=== PATIENT | male | born 1960 | race Caucasian/White ===

== ENCOUNTER 2017-03-04 05:44 | Day surgery (SDC) | payer OTHER ==
[~2017-03-04] VITALS: Ht 182.9 cm; Wt 91.2 kg
[2017-03-04] VITALS (12 sets, daily range): BP systolic 115–167; BP diastolic 60–102; PULSE 74–108; RESP 12–22; O2SAT 91–96
[~2017-03-04 05:44] MED LIST: Tranexamic Acid Inj 1,000 MG in 0.9% Sodium Chloride 100 ML IV SCH
[2017-03-04] MEDS ORDERED: Lactated Ringer's 1,000 ML IV ONE (06:00)
[2017-03-04] MEDS ORDERED: CeFAZolin 2 Gm/50 mL D5W Duplex Bag IV ONE (07:01)
--- NOTE | 2017-03-04 07:02 | PCM.HPANE ---
Patient Data Surgeon Admitting Provider: Attending Provider:Tim Salinas MD Primary Care Physician:Raad Wilkinson MD Other Provider:Ana Cristina Pateingham Anesthesia Reason for Visit Right Knee Arthritis Ht/WT & BMI Height (Feet): 6 Height (Inches): 0.00 Weight (Kilograms): 91.200 Body Mass Index 27.00 Allergies Coded Allergies: No Known Allergies (Verified , 02/28/05) Past Anesthesia History Anesthesia History: Denies:: Anesthesia Reactions (nervous- prior to surgery), Fam Anesthesia Reaction, Malignant Hyperthermia Diabetes History Hx Diabetes?: No MRSA MRSA: No Medications Hypertension Medication: No Home Meds Incl Beta Armando: No Discontinued Reported Medications [ibuprofen] No Conflict CheckUnknown Dose PRN For Pain 08/29/15 History History of ENT Problems?: Yes HEENT History: Positive for:: Sinus Problem (hx of rhinoplasty) Denies:: Cataracts Glaucoma Hearing Problem Denture Type: None Teeth Condition: Within Normal Limits Hx of Heart Problems?: No Cardiovascular History: Denies:: Cardiac Surgery Chest Pain Congestive Heart Failure Edema Heart Murmur Hypertension Irregular Heartbeat Pacemaker Thrombophlebitis Hx of Respiratory Problem?: Yes Respiratory History: Positive for:: Use of C-PAP Machine (uses mouth guard) Denies:: Asthma COPD Emphysema Oxygen Administration Pneumonia Tuberculosis Hx Neurologic Problems?: No Neurological History: Denies:: CVA Headaches Multiple Sclerosis Parkinson's Disease Seizures TIA Hx of GI Problems?: Yes Hx of Problems?: Yes Genitourinary History: Positive for:: Kidney Stones (hx of kidney stones, surgery 2004) Denies:: Urinary Tract Infection Male Hx: Denies:: Prostate Problems Scrotal Mass Testicular Surgery Skin History: Denies:: History Skin Disorders? Pressure Ulcers Hx Musculoskeletal Problems?: Yes Musculoskeletal History: Positive for:: Degenerative Joint Musculoskeletal Trauma (right knee current admission problem, hx of scopes) Osteoarthritis Denies:: Fibromyalgia Joint Replacement (current admission plan) Systemic Lupus Hx of Psycho/Social Problems?: No Psycho Social History: Positive for:: Anxiety Denies:: Hx Depression Suicide Attempt Hx Surgeries?: Yes (FUSION IOF LEFT ANKLE, RHINOPLASTY, KIDNEY STONE REMOVED RIGHT KIDNEY) Hx Any Other Health Problems?: Yes Other History: Positive for:: Hospitalization Denies:: Cancer Thyroid Disease History Blood Transfusions: Positive for:: Accept Blood Products? Denies:: Blood Transfusions Hx Diabetes: No Hx Alcohol Use: YesAlcoholic Drinks Per Day: 2-3 drinks dailyHx Substance Use : Yes (marijuana- edible randomly) Smoking Status: Former Smoker Have You Smoked inLast 12 mo: No Stop/Bang S-Snoring: Do You Snore Loudly: Yes T-Tired: feel tired, fatigued: No O-Obsered: Observed not breath: No P-Blood Pressure: treated: No B- Body Mass Index > 35 kg/m2: No A- Age over 50: Yes N- Neck Large Circumference: No G- Gender Male: Yes YUSEF Total Score: 3 YUSEF Category 4 OutPt Procedure: Yes Risk Assessment Category Category 1A: Patient has history of documented sleep apnea, and HAS NOT received any narcotic, sedative or anesthesia administration during this stay. Category 1B: Patient has history of documented sleep apnea, and HAS received any narcotic , sedative or anesthesia administration during this stay Category 2: Patient has SUSPECTED Obstructive Sleep Apnea, and HAS received any narcotic , sedative or anesthesia administration during this stay. Category 3: Patient has SUSPECTED Obstructive Sleep Apnea and HAS NOT received narcotic, sedative or anesthesia administration during this stay. Category 4: Outpatient in Procedural Areas with known sleep apnea or who screen positive for High Risk via the STOP/BANG questionnaire. Exam Exam Vital Signs Vital Signs Date Time Temp Pulse Resp B/P Pulse Ox O2 Delivery O2 Flow Rate FiO2 03/04/17 06:20 36.3 74 12 120/82 96 Room Air General Appearance: Alert, Oriented X3, Cooperative, Moderate Distress (with anxiety) HEENT/AIRWAY: MP 1 Lungs: Normal Air Movement Heart: Exam Unremarkable Meds/Labs/Diagnostics Admission Meds Current Medications Lactated Ringer's (Lr) 1,000 ml @ 10 mls/hr Q24H ONCE IV Last administered on 03/04/17t 06:52; Start 03/04/17 at 06:00; Stop 03/05/17 at 05:59 Plan Impression Patient chart reviewed, patient interviewed and anesthestic plan with risks, benefits, and alternatives discussed, and informed consent obtained. NPO per Anesth. Guidelines: Yes ASA Physical Status: ASA1 Normal Healthy Anesthetic Plan: GA Bene/Risks/Altern/Consents: Yes HP Complete Prior to Induction: Yes Mynor Tello MD Mar 04, 2017 07:02
[2017-03-04] MEDS ORDERED: Bupivacaine Liposome 1.3% 20 mL Inj ONE (07:20)
[2017-03-04] MEDS ORDERED: fentaNYL-PF 50 mCg/mL 2 mL Inj ONE (07:27)
[2017-03-04] MEDS ORDERED: HYDROmorphone 1 mg/mL Inj ONE (07:27)
[2017-03-04] MEDS ORDERED: Dexamethasone 4 mg/mL Inj ONE (07:27)
[2017-03-04] MEDS ORDERED: Propofol 10 mg/mL 20 mL Inj ONE (07:27)
[2017-03-04] MEDS ORDERED: Ondansetron 2 mg/mL 2 mL Inj ONE (07:27)
[2017-03-04] MEDS ORDERED: Bupivacaine-MPF 0.25%/EPI 30 mL Inj INJ ONE (07:45)
[2017-03-04] MEDS ORDERED: Gentamicin 40 mg/mL 2 mL Inj IRRIGATION ONE (07:45)
[2017-03-04] MEDS ORDERED: Bupivacaine Liposome 1.3% 20 mL Inj INFILTRATE ONE (07:45)
[2017-03-04] MEDS ORDERED: Lactated Ringer's 500 ML IV PRN (08:01)
[2017-03-04] MEDS ORDERED: Lactated Ringer's 1,000 ML IV SCH (08:01)
[2017-03-04] MEDS ORDERED: Dexamethasone 4 mg/mL Inj IVPUSH PRN (08:05)
[2017-03-04] MEDS ORDERED: EPHEDrine Sulfate 50 mg/mL Inj IVPUSH PRN (08:05)
[2017-03-04] MEDS ORDERED: fentaNYL-PF 50 mCg/mL 2 mL Inj IVPUSH PRN (08:05)
[2017-03-04] MEDS ORDERED: Atropine 0.4 mg/mL Inj IVPUSH PRN (08:05)
[2017-03-04] MEDS ORDERED: Labetalol 5 mg/mL 4 mL Inj IV PRN (08:05)
[2017-03-04] MEDS ORDERED: Phenylephrine 10,000 mCg/mL Inj IVPUSH PRN (08:05)
[2017-03-04] MEDS ORDERED: Albuterol-Ipratropium 3 mL Inhalation Solution NEB PRN (08:05)
[2017-03-04] MEDS ORDERED: Ondansetron 2 mg/mL 2 mL Inj IVPUSH PRN (08:05)
[2017-03-04] MEDS ORDERED: MetoCLOpramide 5 mg/mL 2 mL Inj IVPUSH PRN (08:05)
[2017-03-04] MEDS ORDERED: oxyCODONE-Acetamin 5-325 mg Tablet PO PRN (08:50)
[2017-03-04] MEDS: HYDROmorphone 1 mg/mL Inj IVPUSH PRN ×3 (09:20→10:40)
--- NOTE | 2017-03-04 09:34 | OP ---
[address] [address] OPERATIVE REPORT PATIENT: LACEY MURCIA : 1960 MR#: [id number] ADMIT: 03/04/2017 JOB ID: [id number] DATE OF SURGERY: 03/04/2017 SURGEON: Tim Salinas M.D. PREOPERATIVE DIAGNOSIS(ES): Advanced lateral compartment osteoarthritis, right knee. POSTOPERATIVE DIAGNOSIS(ES): Advanced lateral compartment osteoarthritis, right knee. PROCEDURE: Right knee lateral unicompartmental knee arthroplasty. BACTERIOLOGY TECHNICIAN: Xavier Yi PA-C Speech Language Pathology Assistant required due to the complexity of the operation. INDICATIONS: This gentleman has had progressive disability associated with lateral compartment degenerative changes. Symptoms are uncontrolled by conservative treatment options. He elects to proceed with a lateral compartment arthroplasty understanding and accepting the potential for risks and complications, which include but is not limited to infection, thromboembolic, neurovascular events, as well as potential for progressive arthritis and unresurfaced compartments and implant failure. Understanding these, he wishes to proceed. DESCRIPTION OF PROCEDURE: The patient was prepped and draped in the usual sterile fashion. An anterolateral approach was made. Frontal bossing and patellar osteophyte removed. The alignment apparatus was assembled. Distal femoral and proximal tibial cuts were made. Tibial cut was completed with the sagittal saw. Bone fragments were removed. All meniscal tissue and osteophytes were removed from the knee. The femur was sized to an 8 chamfer cutting block, fixed in appropriate position. Rotation and drill holes and chamfer cuts were made. The tibia was cut with the R size to a #5 provisionally fixed. Drill holes were made. Trial reduction was performed and an 8 mm polyethylene produced appropriate soft tissue tension and alignment tracking. Pressurized lavage was followed by pressurized cementation of the components. Excess cement was removed during the curing process. Cut margins injected with Marcaine and Exparel mix. Deep Hemovac drain was left. Deep closure of the fascia with #2 Quill deep followed by 2-0 Vicryl, 3-0, and a 4-0 intracuticular stitch. Sterile dressings were applied. The patient was returned to the recovery room in stable condition. He tolerated the procedure well. There were no complications.
--- NOTE | 2017-03-04 09:58 | PCM.ANEP1 ---
Post Anesthesia PACU Phase 1 Assessment Vital Signs see anesthesia record Vital Signs Date Time Temp Pulse Resp B/P Pulse Ox O2 Delivery O2 Flow Rate FiO2 03/04/17 09:30 99 22 133/86 94 Simple Mask 10 03/04/17 09:25 99 18 139/93 95 Simple Mask 10 03/04/17 09:20 36.3 102 20 150/102 96 Simple Mask 10 03/04/17 09:15 105 17 150/102 94 Simple Mask 10 03/04/17 09:10 108 13 167/95 95 Simple Mask 10 03/04/17 09:07 36.3 155/101 03/04/17 06:20 36.3 74 12 120/82 96 Room Air Anesthetic Administered: GA Level of Alertness: Awake, talking LAZO's with Equal Strength: Yes Pain: Yes (difficult to control as patient is apneic but any arousal results in reported extreme pain) Nausea or Vomiting: No CV Function & Hydration Stable: Yes Airway Device: NITE GUARD Oxygen Delivery: Simple Mask Lungs: Normal Air Movement Dermatome Level: Full Sensation PACU Phase 2 Assessment Complications: No Follow up Care: No Patient Instructions Provided: N/A Mynor Tello MD Mar 04, 2017 09:58
[2017-03-04] MEDS: hydrOXYzine Pamoate 25 mg Capsule PO PRN ×2 (09:59→10:40)
--- NOTE | 2017-03-04 10:11 | DRSVH ---
PROCEDURE: X-RAY RIGHT KNEE, ONE OR TWO VIEWS ([id number]) INDICATIONS: POST OP TECHNIQUE: 2 view(s) of the knee acquired. COMPARISON: [facility], CR, XR KNEE ARTHRITIC SERIES RT, 12/24/2016, 15:49. FINDINGS: Bones: Patient is status post knee joint compartment unicondylar arthroplasty. Postsurgical changes compatible with ACL repair are noted. Hardware components are in expected positions. Visualized bony structures are intact. Soft tissues: Overlying postoperative changes are noted. IMPRESSION: Expected postsurgical change for unicondylar right knee arthroplasty. Dictated by: Yaz Carrillo MD, PhD on 03/04/2017 at 10:08 Approved by: Yaz Carrillo MD, PhD on 03/04/2017 at 10:09
== END 2017-03-04 23:59 | disposition home or self-care (01) ==
LOC: SAS 05:44
PROVIDERS: ATTEND Orthopaedic Surgery
DX: M17.31 Unilateral post-traumatic osteoarthritis, right knee (principal); F41.9 Anxiety disorder, unspecified; F12.90 Cannabis use, unspecified, uncomplicated; Z87.442 Personal history of urinary calculi; Z87.891 Personal history of nicotine dependence
CPT/HCPCS: 27446; 73560; C1713; C1776; J0690; J1100; J1170; J1580; J1885; J2250; J2405; J3010; J7120; Q0177